=== PATIENT | male | born 1975 | race Hispanic/Latino ===

== ENCOUNTER → 2023-01-07 | Outpatient (CLI) | payer OTHER | END | disposition home or self-care (01) | LOC: OIH 08:07 | PROVIDERS: ATTEND Internal Medicine | DX: Z13.6 Encounter for screening for cardiovascular disorders (principal) | CPT/HCPCS: 75571 ==

== ENCOUNTER 2025-05-01 21:30 | Emergency (ER) | payer BC ==
[~2025-05-01] VITALS: Ht 162.6 cm; Wt 89.8 kg
[2025-05-01 21:32] VITALS: TEMP 98.6
[2025-05-01 21:49] LABS: IMMATURE GRANULOCYTE ABSOLUTE 0.00 K/uL (0-1); NUCLEATED RED BLOOD CELLS 0.0 % (0.0-0.19); PLATELET COUNT (AUTO) 104 K/uL (130-400); RED BLOOD CELL COUNT(AUTO) 4.47 MIL/uL (4.50-6.20); RED CELL DISTRIBUTION WIDTH 14.6 % (11.0-15.5); WHITE BLOOD COUNT (AUTO) 6.5 K/uL (4.8-10.8)
[2025-05-01 21:54] LABS: CREATININE 0.8 mg/dL (0.5-1.3); GLOMERULAR FILTR. RATE CALC 107.0 mL/min (>90); GLUCOSE,RANDOM 130.0 mg/dL (70-105); SODIUM SERUM 139.0 mmol/L (136-145); UREA NITROGEN, BLOOD 9.0 mg/dL (7-18)
--- NOTE | 2025-05-01 21:56 | ERN ---
General Chief Complaint: Chest Pain Stated Complaint: chest pain Time Seen by MD: 21:35 History of Present Illness Initial Comments 49-year-old male history of liver cirrhosis here for evaluation of chest pain. Patient states he developed chest pain earlier today around 3:00 p.m.. Took 324 of baby aspirin and states the pain got better. It returned about an hour later. He was concerned thus he decided to come to the emergency room for evaluation. Pain has worsened upon inspiration. It is localized in the center. States it is worsened when he laughs or when he takes deep breaths. Allergies: Coded Allergies: No Known Allergies (Unverified Allergy, Unknown, 12/07/23) Home Meds No Active Prescriptions or Reported Meds Past Medical History Past Medical History: High Cholesterol Past Surgical History: None Cardiovascular: (+) chest pain Review of Systems: was completed, & the rest were negative. Physical Exam Physical Exam Dictation GENERAL APPEARANCE NAD, activity normal for age, well developed/ well nourished, no cyanosis, pallor, or diaphoresis. EYES lids/conjunctiva normal. EARS/NOSE/THROAT Mucous membranes moist, nares normal, lips/teeth normal uvula midline without oral pharyngeal erythema, exudate or swelling TMs normal bilaterally. No lymphangitis/lymphedema. HEAD/NECK normocephalic atraumatic, no facial trauma, neck is supple. RESPIRATORY respiratory effort normal, speaks in full sentences, no tripod position, no accessory muscle use. Lungs clear to auscultation without rhonchi, wheezes, rales. Pain with deep inspiration CARDIAC Regular rate and rhythm, no edema. ABDOMINAL Soft, ND/NT. No evidence of fluid wave. No pulsatile masses on exam, rebound tenderness, Alejandro sign or pain over Mcburney's point. MUSCLES/EXTREMITIES tenderness to palpation of the chest. Reproducible. No abnormal range of motion, no swelling. SKIN Warm, pink and dry. No rashes, dermatoses, petechiae or lesions. NEUROLOGICAL Speech is clear and appropriate. Normal level of consciousness. Ga it and coordination are normal. 5/5 strength in all extremities. PSYCH Normal mood and affect. Judgement/competence is appropriate Results Laboratory and Microbiology Lab and Micro Result Laboratory Tests Test 05/01/25 21:35 05/01/25 22:08 05/01/25 23:00 White Blood Count 6.5 K/uL (4.8-10.8) Red Blood Count 4.47 MIL/uL (4.50-6.20) L Hemoglobin 13.8 g/dL (14.0-18.0) L Hematocrit 41.0 % (42-54) L Mean Corpuscular Volume 91.7 fL (79-99) Mean Corpuscular Hemoglobin 30.9 pg (27.0-33.0) Mean Corpuscular Hemoglobin Concent 33.7 g/dL (32.0-36.0) Red Cell Distribution Width 14.6 % (11.0-15.5) Platelet Count 104 K/uL (130-400) L Mean Platelet Volume 11.3 fL (7.5-10.5) H Immature Granulocyte % (Auto) 0.0 % (0-1) Neutrophils (%) (Auto) 54.2 % (40.0-77.0) Lymphocytes (%) (Auto) 31.9 % (21.0-51.0) Monocytes (%) (Auto) 11.0 % (3.0-13.0) Eosinophils (%) (Auto) 2.3 % (0.0-8.0) Basophils (%) (Auto) 0.6 % (0.0-5.0) Neutrophils # (Auto) 3.5 K/uL (1.8-7.7) Lymphocytes # (Auto) 2.1 K/uL (1.0-4.8) Monocytes # (Auto) 0.7 K/uL (0.1-1.0) Eosinophils # (Auto) 0.15 K/uL (0.00-0.70) Basophils # (Auto) 0.04 K/uL (0.00-0.20) Absolute Immature Granulocyte (auto 0.00 K/uL (0-1) Nucleated Red Blood Cells 0.0 % (0.0-0.19) Sodium Level 139 mmol/L (136-145) Potassium Level 3.7 mmol/L (3.5-5.1) Chloride Level 104 mmol/L (101-111) Carbon Dioxide Level 25 mmol/L (21-32) Blood Urea Nitrogen 9 mg/dL (7-18) Creatinine 0.8 mg/dL (0.5-1.3) Glomerular Filtration Rate Calc 107 mL/min (>90) Random Glucose 130 mg/dL (70-105) H Total Calcium 7.7 mg/dL (8.5-10.1) L Total Creatine Kinase 93 U/L (21-232) # Troponin I High Sensitivity 9 ng/L (4-75) Ammonia 23 umol/L (11-32) Influenza Type A Antigen Negative For Type A Influenza Type B Antigen Negative For Type B SARS-CoV-2 Antigen (Rapid) PRESUMPTIVE NEGATIVE EKG/XRAY/US/CT/MRI EKG: (+) NSR; (-) ST elevation EKG Comment EKG read by me normal sinus rhythm with a rate of 76, MO 163, QRS 90, QT 402. Heart score: One MDM 49-year-old male here for evaluation of chest pain. His chest pain likely has a pleurisy type of etiology as he has reproducible tenderness with palpation as well as pain with deep inspiration. We will get a cardiac workup to rule out any cardiac pathology however we will likely discharge him home on NSAIDs if no cardiac markers are found. ED Course Orders Procedure Category Date Status Time Vital Signs Per CPOE 05/01/25 Transmitted Routine 21:32 Chest 1vw RAD 05/01/25 Taken 21:32 12 Lead Ekg Tracing- EKG 05/01/25 Logged Technical 21:32 Oxygen By Nc/Pulse Ox CPOE 05/01/25 Transmitted 21:32 Maintain Iv CPOE 05/01/25 Transmitted 21:32 Iv Insertion CPOE 05/01/25 Transmitted 21:32 Cardiac Monitoring CPOE 05/01/25 Transmitted 21:32 Pulse Oximetry With CPOE 05/01/25 Transmitted Vs And Prn 21:32 Cbc With Differential LAB 05/01/25 Complete 21:32 Activity: Br W/Brp CPOE 05/01/25 Transmitted With Assist 21:32 Creatine Kinase, Total LAB 05/01/25 Complete 21:32 Troponin I High LAB 05/01/25 Complete Sensitivity 21:32 Basic Metabolic Panel LAB 05/01/25 Complete 21:32 Ketorolac PHA 05/01/25 Complete Tromethamine 15mg/Ml 22:00 Ammonia LAB 05/01/25 Complete 21:57 Influenza Type A & B, LAB 05/01/25 Complete Rapid 22:59 Covid19 (Sars Antigen LAB 05/01/25 Complete Rapid) 22:59 Guaifenesin Sug-Vinod PHA 05/01/25 Complete 100 Mg/5ml (Robituss 23:30 Current Medications Medications (Trade) Dose Ordered Sig/Evette Route PRN Reason Start Time Stop Time Status Last Admin Dose Admin Guaifenesin (RobiTUSSin SUGAR-FREE 100 MG/ 5 ML UDCUP) 200 mg ONCE ONCE PO 05/01/25 23:30 05/01/25 23:32 DC Ketorolac Tromethamine (toRADol) 15 mg ONCE ONCE IM 05/01/25 22:00 05/01/25 22:01 DC 05/01/25 22:10 Vital Signs Date Time Temp Pulse Resp B/P (MAP) Pulse Ox O2 Delivery O2 Flow Rate FiO2 05/01/25 22:44 76 19 119/74 98 Room Air* 0 21 05/01/25 21:32 98.1 75 18 128/75 98 Room Air* 0 21 05/01/25 21:32 98.6 76 18 128/76 99 Room Air 0 11:33 p.m.: Patient re-evaluated at this time. He is well. No acute distress. States that this pain has much improved ever since he got the shot for pain. I explained to him NSAIDs are the treatment of choice for costochondritis. He is also complaining of cough which just started when he came into the hospital. We will give him a dose of Robitussin and discharge him home. Patient's prior external medical records from other ER visits were reviewed by me as indicated. Prior testing and results from previous visits were reviewed. Prior tests were taken into account with medical decision making and resource utilization, independent historian/historians were used to obtain complete medical history. I independently interpreted the test that were performed, results were reviewed by me and considered findings on radiology if ordered. Medical management and examination interpretation discussions were had by me with other qualified healthcare professionals as indicated for the patient's care. Labs and imaging reviewed with patient. All questions answered at this time. Patient advised to follow up with primary care physician in the next few days. Patient well-appearing, no acute distress. Vital signs stable. Will discharge at this time. DX & DISP Disposition: Discharge Departure Impression: Primary Impression: Costochondritis, acute Additional Impression: Viral URI with cough Condition: Stable Scripts Benzonatate (Tessalon Perles) 100 Mg Cap 1 CAP PO TID for cough for 10 Days, #30 CAP 0 Refills Prov: LUISANA HULL MD 05/01/25 Guaifenesin (Mucinex) 1,200 Mg Tbmp.12hr 1 TAB PO BID for cough for 7 Days, #14 TAB 0 Refills Prov: LUISANA HULL MD 05/01/25 Oxymetazoline HCl (Afrin) 0.05 % Morris 1 SPRAY NS BID for 3 Days, #15 ML 0 Refills Prov: LUISANA HULL MD 05/01/25 Referrals: PARKER PÉREZ MD (PCP) LUISANA HULL MD May 01, 2025 21:56
[2025-05-01 21:59] LABS: CREATINE KINASE, TOTAL 93.0 U/L (21-232)
[2025-05-01 22:44] VITALS: BP 119/74; PULSE 76; RESP 19; O2SAT 98
[2025-05-01 23:27] LABS: COVID19 (SARS ANTIGEN RAPID) PRESUMPTIVE NEGATIVE (NEGATIVE); INFLUENZA TYPE A Negative For Type A (NEGATIVE); INFLUENZA TYPE B Negative For Type B (NEGATIVE)
--- NOTE | 2025-05-01 23:42 | HMCIMG ---
EXAM: CR Chest, 1 view CLINICAL HISTORY: Chest pain. COMPARISON: None provided. FINDINGS: The lungs show no infiltrates or other acute findings. No pleural effusion or pneumothorax. The cardiomediastinal silhouette is within normal limits. No acute osseous abnormality. IMPRESSION: No acute cardiopulmonary process is evident. /Couch
--- NOTE | 2025-05-02 06:33 | EKG ---
[facility] Test Date: 2025-05-01 Test Time: 21:28:40 Pat Name: SOFIA VARGAS Department: [facility] Patient ID: [facility] [place] [facility] [id number] Room: Gender: Knitter Hand: [phone] : 1975 Requested By: LUISANA HULL Order Number: [id number] Reading MD: Bea Enriquez Measurements Intervals Dexter Rate: 76 P: 46 MT: 163 QRS: 38 QRSD: 90 T: 56 QT: 402 QTc: 452 Interpretive Statements Sinus rhythm No previous ECG available for comparison Electronically Signed On 05-02-2025 10:31:44 [employer]EMMER by Bea Enriquez Please click the below link to view image of tracing.
== END 2025-05-01 23:47 | disposition home or self-care (01) ==
LOC: EDH 21:30
DX: M94.0 Chondrocostal junction syndrome [Tietze] (principal); J06.9 Acute upper respiratory infection, unspecified; E78.00 Pure hypercholesterolemia, unspecified; Z20.822 Contact with and (suspected) exposure to COVID-19
CPT/HCPCS: 99284; 71045; 87426; 82550; 84484; 80048; 82140; 85025; 87804 ×2; 36415; 96372; 93005; J1885